=== PATIENT | male | born 1965 | race Caucasian/White ===

== ENCOUNTER 2018-02-17 12:21 | Inpatient (IN) | payer OTHER, MEDICARE ==
[~2018-02-17] VITALS: Ht 185.4 cm; Wt 103.3 kg
[~2018-02-17 12:21] MED LIST: DEXAMETHASONE SOD PHOS 4 MG/ML VIAL IV ONE; GLYCOPYRROLATE 1 MG/5 ML SYRINGE IV PUSH ONE; LACTATED RINGER'S 1000 ML INJ 1,000 ML IV ONE; LIDOCAINE HCL 1% PF 5 ML SYRINGE OTHER ONE; NEOSTIGMINE 5 MG/5 ML SYRINGE IV PUSH ONE; ONDANSETRON HCL 4 MG/2 ML VIAL IV ONE; PHENYLEPH/NS 1000 MCG/10 ML SYR IV ONE; PROPOFOL 200 MG/20 ML AMP IV ONE; ROCURONIUM INJ 50 MG/5 ML SYRINGE IV PUSH ONE; SODIUM CHLORIDE 0.9% 10 ML VIAL IV ONE; STERILE WATER FOR INJECTION 20 ML VIAL IV ONE; VECURONIUM BROMIDE 20 MG VIAL IV ONE; ceFAZolin INJ 1,000 MG VIAL IV ONE
[2018-02-17] MEDS ORDERED: GENTAMICIN SULFATE 80 MG/2 ML VIAL ONE (12:49)
[2018-02-17] MEDS ORDERED: UMEC1AER INH (13:22)
[2018-02-17] MEDS ORDERED: OMEP20TA93 PO (13:22)
[2018-02-17] MEDS ORDERED: TAMS0.4C4 PO (13:22)
[2018-02-17] MEDS ORDERED: LACT10SO PO (13:22)
[2018-02-17] MEDS ORDERED: DICL50TA3 PO (13:22)
[2018-02-17] MEDS ORDERED: VENTAER INH (13:22)
[2018-02-17] MEDS ORDERED: HYDR-3583 PO (13:22)
[2018-02-17] MEDS ORDERED: METO25TA3 PO (13:22)
[2018-02-17] MEDS ORDERED: LACTATED RINGER'S 1000 ML IV PRN (13:45)
[2018-02-17] MEDS ORDERED: ceFAZolin 2 GM PREMIX 50 ML IV SCH (13:45)
[2018-02-17] MEDS ORDERED: VANCOMYCIN 1 GM/200 ML PREMIX ON-CALL IV SCH (13:45)
[2018-02-17] MEDS ORDERED: VANCOMYCIN 1000 MG/NS 250 ML (for <70 kg) IV SCH ×2 (13:45)
[2018-02-17] MEDS ORDERED: CHLORHEXIDINE GLUCONATE 2 % 1 PACK (2 CLOTHS) TOPICAL PRN (13:45)
[2018-02-17] MEDS ORDERED: SODIUM CHLORID 0.9% 500 ML IV PRN (13:45)
[2018-02-17] MEDS ORDERED: METOPROLOL TARTRATE 25 MG TAB PO PRN (13:45)
[2018-02-17] MEDS ORDERED: CHLORHEXIDINE GLUCONATE 4% SOLN 120 ML BTL TOPICAL SCH (13:45)
[2018-02-17] MEDS ORDERED: POVIDONE IODINE 5% (ANTISEPSIS KIT) 4 APPLICATIONS EACH NARE PRN (13:45)
[2018-02-17] MEDS ORDERED: ACETAMINOPHEN 1000 MG/100 ML 100 ML IV ONE (13:57)
[2018-02-17] MEDS ORDERED: KETAMINE HCL 500 MG/10 ML VIAL ONE (15:33)
[2018-02-17] MEDS ORDERED: BEDSIDE COMMODE1 MI1 (17:13)
[2018-02-17] MEDS ORDERED: WALKER WHEELS/F1 MIS (17:13)
--- NOTE | 2018-02-17 17:14 | HHI.FF ---
Face to Face Verification Diagnosis: (1) Osteoarthritis of left hip Physical Therapy Gait training, Transfer training, bed to chair Hip: Total hip, Protocol: Left Canvas Knee Splint: Other (when sleeping at night for 4 weeks ) Right LE Weight Bearing: WB as tolerated Left LE Weight Bearing: WB as tolerated Nursing RN: 3 days/week x 2 weeks Nursing: Dressing changes (clean incision with alcohol and apply dry sterile dressing daily ) Additional Instructions Aspirin 81 mg bid x 4 weeks DVT prop I have seen patient Kel Magaña on 02/17/18. My clinical findings support the need for the requested home health care services because: High risk of falls I certify that my clinical findings support that this patient is homebound because: Post-op weakness Bayron Lynch MD Feb 17, 2018 17:14
[2018-02-17] MEDS ORDERED: ALUMINUM/MAGNESIUM/SIMETH 30 ML CUP PO PRN (17:15)
[2018-02-17] MEDS ORDERED: oxyCODONE/ACETAMINOPHEN 10 MG/325 MG TAB PO PRN (17:15)
[2018-02-17] MEDS ORDERED: MIDAZOLAM HCL 2 MG/2 ML VIAL ONE (17:15)
[2018-02-17] MEDS ORDERED: Post-op Orders (for Pharmacy) XX ONE (17:15)
[2018-02-17] MEDS ORDERED: ALBUTEROL SULFATE 90 MCG/ACT HFA 8 GM INHALER INH PRN (17:15)
[2018-02-17] MEDS ORDERED: ONDANSETRON HCL 4 MG/2 ML VIAL IVP PRN (17:15)
[2018-02-17] MEDS ORDERED: MORPHINE SULFATE 4 MG/ML INJ ONE (17:15)
[2018-02-17] MEDS ORDERED: *MEPERIDINE 25 MG INJ VIAL PERIprocedural Use ONLY ONE (17:17)
[2018-02-17] MEDS ORDERED: *ONDANSETRON 4 MG VIAL PERIprocedural Use ONLY ONE (17:30)
[2018-02-17] MEDS ORDERED: *morphine SULFATE 4 MG/ML PERIprocedure ONLY ONE ×3 (17:30→18:26)
[2018-02-17] MEDS ORDERED: HYDROmorphone HCL PF 0.5 MG/0.5 ML SYRINGE ONE (17:48)
--- NOTE | 2018-02-17 17:51 | MP ---
cc: Bayron Lynch MD, Maria Hernandez, Manuel DATE OF OPERATION: PREOPERATIVE DIAGNOSIS: Left hip severe osteoarthritis. POSTOPERATIVE DIAGNOSIS: Left hip severe osteoarthritis. PROCEDURE PERFORMED: Left total hip arthroplasty. SURGEON: Bayron Lynch MD MARINE SPECIALIST: Gardenia Miranda PA-C ANESTHESIA: General. COMPLICATIONS: None. ESTIMATED BLOOD LOSS: 350 mL DRAINS: None. SPECIMEN: None. DESCRIPTION OF PROCEDURE: My psychologist research assistant, Gardenia Miranda PA-C, was present for the entire surgical case. She was medically necessary for the entire case because of the complexity of the case and to facilitate the performance of the procedure. The RETAIL FIELD MERCHANDISER was at the back table and was not of skill-set for this case to manipulate the instruments, e.g., the multiple different types of soft tissue retractors, trial implants and permanent implants. The patient was brought to the operating room and had satisfactory anesthesia by the Department of Anesthesia. The patient was placed in lateral decubitus position. All pressure points were well padded. The left upper and lower extremity were prepped and draped in the usual sterile manner. The left hip and lower extremity was prepped and draped in the usual sterile manner. The posterolateral exposure to the hip was made. The patient was found to have a significant limb length discrepancy with left leg shorter than the right leg with significant stiffness in hip preoperatively. A small posterolateral incision was made, dissecting through subcutaneous tissue. The fascia luz elena and gluteus etelvina were incised in line with the skin incision. Charnley retractor was placed in the wound in order to allow better exposure. Great care was made to protect the sciatic nerve throughout the entire operative procedure. The fascia luz elena and gluteus etelvina were incised in line with the skin incision. Short external rotators removed as a group. The hip abductors were preserved. Capsulotomy was performed and the hip was dislocated posteriorly. The patient was found to have significant deformity to the head with severe arthritis involving the hip joint itself. Osteotomy was made on the neck at the appropriate level. Exposure of the acetabulum made. The acetabular capsule and the acetabular labrum were surgically excised. Significant soft tissue releases were performed in order to improve the patient's range of motion. Hemispherical reamers were then used to prepare the acetabulum. The hip itself was initially medialized. It was sequentially reamed to 52 mm outer diameter. Using a bicentric cup, press-fit type manner, it was found to be stable and satisfactory. The preparation of the proximal femur was performed. Using the [employer] system, sequentially broached to a #11 broach and standard offset. Reduction was made with multiple limb lengths with 28 mm ball. A +6 neck was assembled onto the trunnion. The hip was reduced. The patient was found to have satisfactory stability, satisfactory improvement of the limb length discrepancy and satisfactory range of motion. Hip was dislocated again posteriorly and all trial components were removed. A #11 stem, standard offset was then inserted into the proximal femur with an "excellent fit and fill." A +6 neck, 28 mm ball ceramic femoral head was assembled onto the trunnion. Hip was reduced. Again, patient was found to have satisfactory range of motion, satisfactory stability and satisfactory improvement of the limb length discrepancy. The wound was irrigated with copious amounts of sterile saline antibiotic solution, wound dry, wound closed in a routine manner. The short external rotators were repaired back to the greater trochanter drill holes using #2 Ti-Cron suture. The fascia luz elena and gluteus etelvina were repaired using #2 Ti-Cron suture, subcutaneous layers with 0 Vicryl and 2-0 Vicryl. Skin was approximated with running subcuticular 2-0 nylons. The patient tolerated the procedure well and went to the recovery room in stable and satisfactory condition. MD POPEYE Long/ANNA , 05:06 PM , 05:50 PM
--- NOTE | 2018-02-17 18:12 | RADRPT ---
EXAM DATE/TIME: 02/17/2018 18:20 [facility] COMPARISON: No previous studies available for comparison. INDICATIONS : Post op left hip. MEDICAL HISTORY : None. SURGICAL HISTORY : None. ENCOUNTER: Initial ACUITY: 1 day PAIN SCORE: Non-responsive. LOCATION: Left hip. FINDINGS: A lateral view of the left hip with AP pelvis was obtained. Left total hip arthroplasty. Both the fem oral and acetabular components are appropriately positioned. No fracture. Mild degenerative osteoarth ritic changes of the right hip with a subchondral acetabular cyst superiorly. CONCLUSION: 1. Left total hip arthroplasty is radiographically intact without fracture. 2. Degenerative osteoarthritic changes of the right hip Bharath Romano MD on February 17, 2018 at 18:09 Board Certified Radiologist. This report was verified electronically.
[2018-02-17] MEDS: oxyCODONE/ACETAMINOPHEN 10 MG/325 MG TAB PO PRN (18:15)
[2018-02-17] MEDS: LACTATED RINGER'S 1000 ML INJ 1,000 ML IV SCH (18:15)
[2018-02-17] MEDS ORDERED: DO NOT ADM ANY ANTICOAGULANT DRUGS PRN (19:45)
[2018-02-17 20:46] VITALS: BP 135/76; PULSE 83; RESP 18; TEMP 97.4; O2SAT 96
[2018-02-17] MEDS ORDERED: RESP: ALBUTEROL 2.5 MG/IPRATROPIUM 0.5 MG NEB (PRN) NEB (21:00)
--- NOTE | 2018-02-17 21:02 | PD.CONS ---
[facility] Request[facility] By Bayron Lynch MD . Reason for Consult Medical management of chronic medical conditions such as atrial fibrillation, hypertension, and COPD . Primary Care Physician Bayron Lynch MD Diagnoses: (1) Osteoarthritis of left hip History of Present Illness Mr. Magaña is a 52-year-old male with a history of atrial fibrillation on daily aspirin, COPD, bleeding peptic ulcer in 1998, and gastroesophageal reflux disease who presented to the hospital on 02/17/2018 for a left total hip arthroplasty. He is being admitted by Dr. Lynch with radiation oncology consultation for post-op radiation treatments to left hip to prevent postoperative heterotopic ossification. [facility] hospitalists were consulted to manage comorbid chronic medical conditions. The patient is seen in his hospital room. He is postoperative left total hip arthroplasty. Pain level has been as high as a 10/10. He reports adequate pain relief with current pain regimen. He has been in his usual state of health pre-operatively. He has chronic back pain and uses something similar to a TENS unit for this. Review of Systems Except as stated in HPI: all other systems reviewed are Neg Past Family Social History Allergies: Coded Allergies: No Known Allergies (Unverified , 02/17/18) Past Medical History Atrial fibrillation Osteoarthritis COPD Bleeding ulcer in 1998 -secondary to oral steroid use Gastroesophageal reflux disease Denies hypertension, diabetes mellitus, DVT, PE, or CVA. . Past Surgical History Right knee arthroplasty Right rotator cuff repair L4 - S2 laminectomy in 1999 Tonsillectomy Reported Medications Reported Meds & Active Scripts Active Reported Ventolin Hfa 18 GM Inh (Albuterol Sulfate) 90 Mcg/Act Aer 1 Puff INH Q4H PRN Tamsulosin (Tamsulosin HCl) 0.4 Mg Cap 0.8 Mg PO HS Omeprazole 20 Mg Tab 20 Mg PO DAILY Metoprolol Tartrate 25 Mg Tab 25 Mg PO DAILY Lactulose Liq (Lactulose) 10 Gm/15 Ml Soln 30 Ml PO Q6H PRN Diclofenac Sodium DR (Diclofenac Sodium) 50 Mg Tabdr 50 Mg PO TID Anoro Ellipta Inh (Umeclidinium/Vilanterol) 62.5-25 Mcg/Act Aero 1 Puff INH DAILY Hydrocodone-Acetaminophen 10-325 mg Tab 1 Tab PO Q4H PRN . Family History Mother from Melanoma, history of osteoarthritis Father with history of heart disease . Social History Tobacco: Smoked 1 pack per day for 42 years and quit November 04, 2017 Alcohol: Rare social Illicit Drugs: Denies . Physical Exam Vital Signs Vital Signs Date Time Temp Pulse Resp B/P (MAP) Pulse Ox O2 Delivery O2 Flow Rate FiO2 02/17/18 19:45 98.0 80 14 114/68 (83) 95 Nasal Cannula 2 02/17/18 19:00 81 12 112/58 (76) 94 Nasal Cannula 2 02/17/18 18:00 72 13 104/56 (72) 97 Nasal Cannula 2 02/17/18 17:45 60 14 125/59 (81) 97 Nasal Cannula 2 02/17/18 17:30 62 15 148/65 (92) 97 Nasal Cannula 2 02/17/18 17:15 70 18 118/68 (85) 95 Nasal Cannula 2 02/17/18 17:08 97.7 71 20 117/63 (81) 96 Nasal Cannula 4 02/17/18 13:40 98.4 69 16 117/72 (87) 69 Physical Exam Constitutional: This is an overweight middle-aged pleasant male patient, in no apparent distress. Integumentary: No rashes. Cool and dry. HEAD: Atraumatic. Normocephalic. EYES: No scleral icterus. No injection or drainage. ENT: Nose without bleeding, purulent drainage. NECK: Trachea midline. No JVD. CARDIOVASCULAR: Regular rate and rhythm without murmurs, gallops, or rubs. PP + 2. RESPIRATORY: Clear to auscultation. Breath sounds equal bilaterally. No wheezes , rales, or rhonchi. GASTROINTESTINAL: Abdomen soft, non-tender, nondistended. No guarding. MUSCULOSKELETAL: Extremities without clubbing, cyanosis. Left leg immobilizer in place, patient with intact sensation, movement, and rapid capillary refill in feet. NEUROLOGICAL: Awake and alert. Motor and sensory grossly within normal limits. Normal speech. . Imaging Last Impressions Hip and Pelvis X-Ray 02/17/18 0000 Signed Impressions: Service Date/Time: Saturday, February 17, 2018 18:20 - CONCLUSION: 1. Left total hip arthroplasty is radiographically intact without fracture. 2. Degenerative osteoarthritic changes of the right hip Bharath Romano MD . Assessment and Plan Assessment and Plan Mr. Magaña is a 52-year-old male with a history of atrial fibrillation on daily aspirin, COPD, bleeding peptic ulcer in 1998, and gastroesophageal reflux disease who presented to the hospital on 02/17/2018 for a left total hip arthroplasty. He is being admitted by Dr. Lynch with radiation oncology consultation for post-op radiation treatments to left hip to prevent postoperative heterotopic ossification. [facility] hospitalists were consulted to manage comorbid chronic medical conditions. Left hip osteoarthritis s/p Left hip arthroplasty - management per Dr. Lynch orthopedic surgeon - Dr. Lynch has consulted radiation oncology for post op radiation treatments to left hip to prevent heterotopic ossification Atrial fibrillation -Continue home metoprolol -Continuous cardiac telemetry to monitor for further arrhythmia COPD -Continue home albuterol inhaler as needed -Patient will have bring in name of preventive home inhaler that is not available on the medication reconciliation - will restart at that time -Add duo nebulizer every 2 hours for shortness of breath/wheezing not controlled by albuterol inhaler -Supplemental oxygen as needed to maintain oxygen saturation greater than 92% GERD -Protonix 20 mg p.o. daily -monitor for symptoms DVT prophylaxis -chemoprophylaxis per orthopedic surgeon -SCDs Discussed Condition With Dr. Johnson . Problem Qualifiers (1) Osteoarthritis of left hip: Qualified Codes: M16.12 - Unilateral primary osteoarthritis, left hip Sarah Mauro Feb 17, 2018 21:02
[2018-02-17] MEDS: ASPIRIN EC 81 MG TABEC PO SCH (21:14)
[2018-02-17] MEDS: TAMSULOSIN HCL 0.4 MG CAP PO SCH (21:14)
[2018-02-17] MEDS: MORPHINE SULFATE 8 MG/ML INJ IV PUSH PRN (22:09)
[2018-02-18] VITALS (8 sets, daily range): BP systolic 116–139; BP diastolic 62–76; PULSE 79–105; RESP 16–18; TEMP 98.2–98.9; O2SAT 91–98
[2018-02-18] MEDS: oxyCODONE/ACETAMINOPHEN 10 MG/325 MG TAB PO PRN ×4 (00:38→18:52)
[2018-02-18] MEDS: MORPHINE SULFATE 8 MG/ML INJ IV PUSH PRN (01:49)
[2018-02-18] MEDS: LACTATED RINGER'S 1000 ML INJ 1,000 ML IV SCH ×2 (02:56→18:03)
[2018-02-18 05:09] LABS: HEMATOCRIT 34.5 % (39.0-51.0); HEMOGLOBIN 11.8 GM/DL (13.0-17.0)
--- NOTE | 2018-02-18 07:05 | PD.ORT.PN ---
Subjective Subjective Remarks POD#1 L THR No sob/chest pain Explained operative findings;answered multiple questions Objective Vitals Vital Signs Date Time Temp Pulse Resp B/P (MAP) Pulse Ox O2 Delivery O2 Flow Rate FiO2 02/18/18 00:08 98.7 105 18 118/76 (90) 98 02/17/18 20:46 97.4 83 18 135/76 (95) 96 02/17/18 19:45 98.0 80 14 114/68 (83) 95 Nasal Cannula 2 02/17/18 19:00 81 12 112/58 (76) 94 Nasal Cannula 2 02/17/18 18:00 72 13 104/56 (72) 97 Nasal Cannula 2 02/17/18 17:45 60 14 125/59 (81) 97 Nasal Cannula 2 02/17/18 17:30 62 15 148/65 (92) 97 Nasal Cannula 2 02/17/18 17:15 70 18 118/68 (85) 95 Nasal Cannula 2 02/17/18 17:08 97.7 71 20 117/63 (81) 96 Nasal Cannula 4 02/17/18 13:40 98.4 69 16 117/72 (87) 69 I/O 02/17/18 02/17/18 02/17/18 02/18/18 02/18/18 02/18/18 07:00 15:00 23:00 07:00 15:00 23:00 Intake Total 2051 ml Output Total 350 ml Balance 1701 ml Intake Oral 200 ml IV Total 151 ml Other 1700 ml Output Estimated Blood Loss 350 ml # Voids 1 Result Diagram: 02/18/18 0442 Objective Remarks N/V intact No calf tenderness;negative louisa's sign Good correction of pre-op LLD Assessment & Plan Assessment and Plan Low dose XRT today to help prevent post op HO Aspirin EC 81 mg BID x 4 weeks,TEDS for DVT/PE prophylaxsis D/C home today if stable Bayron Lynch MD Feb 18, 2018 07:05
--- NOTE | 2018-02-18 08:15 | MB ---
cc: Antonino Abreu MD, Albert W MD DATE: 02/18/2018 REASON FOR CONSULTATION: A 52-year-old gentleman status post left total hip replacement yesterday for consideration of radiation for prevention of heterotopic ossification. BRIEF HISTORY: This is a 52-year-old gentleman who has a history of a right knee arthroplasty, right rotator cuff repair and an L4-S2 laminectomy. Because of osteoarthritis he was brought to the hospital and yesterday a left total hip replacement was performed under Dr. Lynch's care. Afterwards he asked us to see this patient for consideration of radiation treatment for prevention of heterotopic ossification. This gentleman was seen in the recovery room. He was having considerable postoperative pain and a discussion regarding the reason and rationale for treatment ensued. PAST MEDICAL AND SURGICAL HISTORY: Includes: 1. Osteoarthritis. 2. Atrial fibrillation. 3. Chronic obstructive pulmonary disease. 4. History of bleeding ulcer in 1998. 5. Gastroesophageal reflux disease. 6. He has had a right knee arthroplasty. 7. Right rotator cuff repair. 8. L4-S2 laminectomy. 9. Previous tonsillectomy. ALLERGIES: NO ALLERGIES DOCUMENTED IN THE CHART. MEDICATIONS ON ADMISSION: Have included Ventolin, tamsulosin, omeprazole, metoprolol, lactulose, diclofenac, Anoro Ellipta, and hydrocodone for pain. SOCIAL HISTORY: This gentleman is . He did smoke until 11/2017. REVIEW OF SYSTEMS: Postoperatively, this gentleman's systems review included postoperative pain. He denied symptoms referable to other systems. PHYSICAL EXAMINATION: Brief physical exam revealed a gentleman who was still drowsy and being treated with narcotics for pain. There was no jaundice. He answered appropriately. There is no adenopathy in his head. LUNGS: Lung bal were clear. HEART: Sounds were normal. ABDOMEN: There are no abdominal masses or tenderness. EXTREMITIES: He had a surgical site over the left hip. DISCUSSION: I have reviewed with this gentleman the reason and rationale for postoperative radiation treatment. I have told him that we will be bringing him down to radiation treatment on 02/18/2018. I will again review this data with him as he was immediately postop and I would like him to be more alert for an appropriate consent. Nevertheless, if he does agree we will proceed with a single dose of radiation treatment to the left hip complex per protocol. This has been shown to significantly reduce the risk of heterotopic bone formation in the future. The patient did appear to understand and was agreeable to proceeding and as mentioned, we will review this with him again on 02/18/2018. We hope to deliver treatment that day. MD LEE ANN Jimenez/TL , 07:51 AM , 08:14 AM
[2018-02-18] MEDS: PANTOPRAZOLE SOD 20 MG DELAYED RELEASE TAB PO SCH (08:54)
[2018-02-18] MEDS: ASPIRIN EC 81 MG TABEC PO SCH ×2 (08:55→20:42)
[2018-02-18] MEDS: METOPROLOL TARTRATE 25 MG TAB PO SCH (08:55)
[2018-02-18] MEDS: UMECLIDINIUM 62.5 MCG/VILANTEROL 25 MCG INHALER INH SCH (09:00)
--- NOTE | 2018-02-18 11:12 | HHI.PR ---
Subjective Remarks Mr. Magaña is a 52-year-old male with a history of atrial fibrillation on daily aspirin, COPD, bleeding peptic ulcer in 1998, and gastroesophageal reflux disease who presented to the hospital on 02/17/2018 for a left total hip arthroplasty. He is being admitted by Dr. Lynch with radiation oncology consultation for post-op radiation treatments to left hip to prevent postoperative heterotopic ossification. [facility] hospitalists were consulted to manage comorbid chronic medical conditions. The patient is seen in his hospital room. He is postoperative left total hip arthroplasty. Pain level has been as high as a 10/10. He reports adequate pain relief with current pain regimen. He has been in his usual state of health pre-operatively. He has chronic back pain and uses something similar to a TENS unit for this. 02-18 to go for radiation on his left hip today due to avascular necrosis Working with physical therapy Denies any nausea vomiting or diarrhea or constipation denies any shortness of breath or chest pain or palpitations Hopefully to go home tomorrow Objective Vitals Vital Signs Date Time Temp Pulse Resp B/P (MAP) Pulse Ox O2 Delivery O2 Flow Rate FiO2 02/18/18 08:00 98.2 82 16 118/62 (80) 91 02/18/18 05:08 98.9 81 18 116/63 (80) 92 02/18/18 00:08 98.7 105 18 118/76 (90) 98 02/17/18 20:46 97.4 83 18 135/76 (95) 96 02/17/18 19:45 98.0 80 14 114/68 (83) 95 Nasal Cannula 2 02/17/18 19:00 81 12 112/58 (76) 94 Nasal Cannula 2 02/17/18 18:00 72 13 104/56 (72) 97 Nasal Cannula 2 02/17/18 17:45 60 14 125/59 (81) 97 Nasal Cannula 2 02/17/18 17:30 62 15 148/65 (92) 97 Nasal Cannula 2 02/17/18 17:15 70 18 118/68 (85) 95 Nasal Cannula 2 02/17/18 17:08 97.7 71 20 117/63 (81) 96 Nasal Cannula 4 02/17/18 13:40 98.4 69 16 117/72 (87) 69 I/O 4/16/18 402/17/18 02/18/18 02/18/18 02/18/18 07:00 15:00 23:00 07:00 15:00 23:00 Intake Total 2051 ml 780 ml Output Total 350 ml 2000 ml Balance 1701 ml -1220 ml Intake Oral 200 ml 780 ml IV Total 151 ml Other 1700 ml Output Urine Total 2000 ml Estimated Blood Loss 350 ml # Voids 1 Result Diagram: 02/18/18 0442 Other Results Laboratory Tests Test 02/18/18 04:42 Hemoglobin 11.8 GM/DL Hematocrit 34.5 % Imaging Last Impressions Hip and Pelvis X-Ray 02/17/18 0000 Signed Impressions: Service Date/Time: Saturday, February 17, 2018 18:20 - CONCLUSION: 1. Left total hip arthroplasty is radiographically intact without fracture. 2. Degenerative osteoarthritic changes of the right hip Bharath Romano MD Objective Remarks GENERAL: Awake alert and oriented 3 talkative and cooperative SKIN: Warm and dry. HEAD: Atraumatic. Normocephalic. EYES: Pupils equal and round. No scleral icterus. No injection or drainage. Extraocular muscles intact ENT: No nasal bleeding or discharge. Mucous membranes pink and moist. Tongue is midline NECK: Trachea midline. No JVD. Supple CARDIOVASCULAR: IRRegular rate and rhythm. S1-S2 no S3 or S4 no heave or thrill or rub or gallop RESPIRATORY: No accessory muscle use. Clear to auscultation. Breath sounds equal bilaterally. GASTROINTESTINAL: Abdomen soft, non-tender, nondistended. Hepatic and splenic margins not palpable. MUSCULOSKELETAL: Extremities without clubbing, cyanosis, or edema. No obvious deformities. Tender left hip with decreased range of motion NEUROLOGICAL: Awake and alert. No obvious cranial nerve deficits. Motor grossly within normal limits. Five out of 5 muscle strength in the arms and legs. Normal speech. Tender left hip with decreased range of motion PSYCHIATRIC: Appropriate mood and affect; insight and judgment normal. Procedures DATE OF OPERATION: 02-17-18 PREOPERATIVE DIAGNOSIS: Left hip severe osteoarthritis. POSTOPERATIVE DIAGNOSIS: Left hip severe osteoarthritis. PROCEDURE PERFORMED: Left total hip arthroplasty. SURGEON: Bayron Lynch MD LUMP MAKER: Gardenia Miranda PA-C ANESTHESIA: General. COMPLICATIONS: None. ESTIMATED BLOOD LOSS: 350 mL DRAINS: None. SPECIMEN: None. DESCRIPTION OF PROCEDURE: My personnel security assistant, Gardenia Miranda PA-C, was present for the entire surgical case. She was medically necessary for the entire case because of the complexity of the case and to facilitate the performance of the procedure. The RN HYPERBARIC was at the back table and was not of skill-set for this case to manipulate the instruments, e.g., the multiple different types of soft tissue retractors, trial implants and permanent implants. The patient was brought to the operating room and had satisfactory anesthesia by the Department of Anesthesia. The patient was placed in lateral decubitus position. All pressure points were well padded. The left upper and lower extremity were prepped and draped in the usual sterile manner. The left hip and lower extremity was prepped and draped in the usual sterile manner. The posterolateral exposure to the hip was made. The patient was found to have a significant limb length discrepancy with left leg shorter than the right leg with significant stiffness in hip preoperatively. A small posterolateral incision was made, dissecting through subcutaneous tissue. The fascia luz elena and gluteus etelvina were incised in line with the skin incision. Charnley retractor was placed in the wound in order to allow better exposure. Great care was made to protect the sciatic nerve throughout the entire operative procedure. The fascia luz elena and gluteus etelvina were incised in line with the skin incision. Short external rotators removed as a group. The hip abductors were preserved. Capsulotomy was performed and the hip was dislocated posteriorly. The patient was found to have significant deformity to the head with severe arthritis involving the hip joint itself. Osteotomy was made on the neck at the appropriate level. Exposure of the acetabulum made. The acetabular capsule and the acetabular labrum were surgically excised. Significant soft tissue releases were performed in order to improve the patient's range of motion. Hemispherical reamers were then used to prepare the acetabulum. The hip itself was initially medialized. It was sequentially reamed to 52 mm outer diameter. Using a bicentric cup, press-fit type manner, it was found to be stable and satisfactory. The preparation of the proximal femur was performed. Using the [employer] system, sequentially broached to a #11 broach and standard offset. Reduction was made with multiple limb lengths with 28 mm ball. A +6 neck was assembled onto the trunnion. The hip was reduced. The patient was found to have satisfactory stability, satisfactory improvement of the limb length discrepancy and satisfactory range of motion. Hip was dislocated again posteriorly and all trial components were removed. A #11 stem, standard offset was then inserted into the proximal femur with an "excellent fit and fill." A +6 neck, 28 mm ball ceramic femoral head was assembled onto the trunnion. Hip was reduced. Again, patient was found to have satisfactory range of motion, satisfactory stability and satisfactory improvement of the limb length discrepancy. The wound was irrigated with copious amounts of sterile saline antibiotic solution, wound dry, wound closed in a routine manner. The short external rotators were repaired back to the greater trochanter drill holes using #2 Ti-Cron suture. The fascia luz elena and gluteus etelvina were repaired using #2 Ti-Cron suture, subcutaneous layers with 0 Vicryl and 2-0 Vicryl. Skin was approximated with running subcuticular 2-0 nylons. The patient tolerated the procedure well and went to the recovery room in stable and satisfactory condition. Bayorn Lynch MD Medications and IVs Current Medications Gentamicin Sulfate (Gentamicin Inj) 240 mg STK-MED ONCE .ROUTE Last administered on 02/17/18at 15:44; Start 02/17/18 at 12:49; Stop 02/17/18 at 12:50 ; Status DC Lactated Ringer's 1,000 ml @ 30 mls/hr Q24H PRN IV SEE LABEL COMMENTS Last administered on 02/17/18at 13:48; Start 02/17/18 at 13:45; Stop 02/17/18 at 18:02 ; Status DC Sodium Chloride 500 ml @ 30 mls/hr [id number] PRN IV SEE LABEL COMMENTS; Start at 13:45; Stop 02/17/18 at 18:02; Status DC Metoprolol Tartrate (Lopressor) 25 mg ELECTRIC STOP INSTALLER PRN PO SEE LABEL COMMENTS; Start 02/17/18 at 13:45; Stop 02/17/18 at 18:02; Status DC Povidone Iodine (Betadine 5% Antisepsis Kit) 1 applic ELECTRIC STOP INSTALLER PRN EACH NARE SEE LABEL COMMENTS Last administered on 02/17/18at 13:48; Start 02/17/18 at 13:45 ; Stop 02/17/18 at 18:02; Status DC Chlorhexidine Gluconate (Chlorhexidine 2% Cloth) 3 pack ELECTRIC STOP INSTALLER PRN TOPICAL SEE LABEL COMMENTS Last administered on 02/17/18at 13:48; Start 02/17/18 at 13:45 ; Stop 02/20/18 at 13:44 Chlorhexidine Gluconate (Hibiclens 4% Top Soln) 1 applic ONCE TOPICAL Last administered on 02/17/18at 13:48; Start 02/17/18 at 13:45; Stop 02/17/18 at 18:02 ; Status DC Cefazolin Sodium/ Dextrose 50 ml @ 100 mls/hr ELECTRIC STOP INSTALLER IV Last administered on 02/17/18at 15:05; Start 02/17/18 at 13:45; Stop 02/17/18 at 18:02; Status DC Vancomycin HCl 1000 mg/Sodium Chloride 250 ml @ 250 mls/hr ELECTRIC STOP INSTALLER IV ; Start 02/17/18 at 13:45; Stop 02/20/18 at 13:44; Status Cancel Vancomycin/Sodium Chloride 200 ml @ 200 mls/hr ELECTRIC STOP INSTALLER IV Last administered on 02/17/18at 14:47; Start 02/17/18 at 13:45; Stop 02/20/18 at 13:44 Acetaminophen 100 ml @ As Directed STK-MED ONCE IV ; Start 02/17/18 at 13:57; Stop 02/17/18 at 13:58; Status DC Ketamine HCl (Ketalar Inj) 500 mg STK-MED ONCE .ROUTE ; Start 02/17/18 at 15:33 ; Stop 02/17/18 at 15:34; Status DC Albuterol Sulfate (Proair Hfa Inh) 1 puff Q4H PRN INH SHORTNESS OF BREATH; Start 02/17/18 at 17:15 Lactulose (Lactulose Liq) 30 ml Q6H PRN PO CONSTIPATION; Start 02/17/18 at 17: 15 Metoprolol Tartrate (Lopressor) 25 mg DAILY PO Last administered on 02/18/18at 08:55; Start 02/18/18 at 09:00 Tamsulosin HCl (Flomax) 0.8 mg HS PO Last administered on 02/17/18at 21:14; Start 02/17/18 at 21:00 Pantoprazole Sodium (Protonix) 20 mg DAILY PO Last administered on 02/18/18at 08 :54; Start 02/18/18 at 09:00 Lactated Ringer's 1,000 ml @ 80 mls/hr [id number] IV Last administered on at 18:15; Start 02/17/18 at 17:03 Cefazolin Sodium 1000 mg/Sodium Chloride 100 ml @ 200 mls/hr Q6H IV Last administered on 02/18/18at 08:56; Start 02/17/18 at 21:00; Stop 02/18/18 at 09:29 ; Status DC Miscellaneous Information (Post-op Orders (for Pharmacy)) STAT ONCE XX ; Start 02/17/18 at 17:15; Stop 02/17/18 at 18:05; Status DC Morphine Sulfate (Morphine Inj) 5 mg Q3H PRN IV PUSH BREAKTHROUGH PAIN Last administered on 02/18/18at 01:49; Start 02/17/18 at 17:15; Stop 02/18/18 at 08:00 ; Status DC Ondansetron HCl (Zofran Inj) 4 mg Q6H PRN IVP NAUSEA OR VOMITING; Start at 17:15 Docusate Sodium (Colace) 100 mg BID PO ; Start 02/18/18 at 21:00 Al Hydrox/Mg Hydrox/Simethicone (Mag-Al Plus Susp Liq) 30 ml Q6H PRN PO INDIGESTION; Start 02/17/18 at 17:15 Zolpidem Tartrate (Ambien) 5 mg HS PRN PO SLEEP; Start 02/17/18 at 17:15 Aspirin (Ecotrin Ec) 81 mg BID PO Last administered on 02/18/18at 08:55; Start 02/17/18 at 21:00 Oxycodone/ Acetaminophen (Percocet 10-325 Mg) 1 tab Q6H PRN PO PAIN 1-5; Start 02/17/18 at 17:15 Oxycodone/ Acetaminophen (Percocet 10-325 Mg) 2 tab Q6H PRN PO PAIN 6-10 Last administered on 02/18/18at 07:10; Start 02/17/18 at 17:15 Fentanyl Citrate (fentaNYL INJ) 100 mcg STK-MED ONCE .ROUTE ; Start 02/17/18 at 17:15; Stop 02/17/18 at 17:16; Status DC Midazolam HCl (Versed Inj) 2 mg STK-MED ONCE .ROUTE ; Start 02/17/18 at 17:15; Stop 02/17/18 at 17:16; Status DC Morphine Sulfate (Morphine Inj) 8 mg STK-MED ONCE .ROUTE ; Start 02/17/18 at 17: 15; Stop 02/17/18 at 17:16; Status DC Meperidine HCl (*DEMEROL INJ PERIprocedural ONLY) 25 mg STK-MED ONCE .ROUTE Last administered on 02/17/18at 17:17; Start 02/17/18 at 17:17; Stop 02/17/18 at 17:18; Status DC Morphine Sulfate (*morphine INJ PERIprocedure ONLY) 4 mg STK-MED ONCE .ROUTE Last administered on 02/17/18at 17:30; Start 02/17/18 at 17:30; Stop 02/17/18 at 17:31; Status DC Ondansetron HCl (*ZOFRAN INJ PERIprocedural ONLY) 4 mg STK-MED ONCE .ROUTE Last administered on 02/17/18at 17:30; Start 02/17/18 at 17:30; Stop 02/17/18 at 17:31; Status DC Morphine Sulfate (*morphine INJ PERIprocedure ONLY) 4 mg STK-MED ONCE .ROUTE Last administered on 02/17/18at 17:40; Start 02/17/18 at 17:40; Stop 02/17/18 at 17:41; Status DC Hydromorphone HCl (Dilaudid Pf Inj) 0.5 mg STK-MED ONCE .ROUTE Last administered on 02/17/18at 17:48; Start 02/17/18 at 17:48; Stop 02/17/18 at 17:49 ; Status DC Morphine Sulfate (*morphine INJ PERIprocedure ONLY) 4 mg STK-MED ONCE .ROUTE Last administered on 02/17/18at 18:26; Start 02/17/18 at 18:26; Stop 02/17/18 at 18:27; Status DC Miscellaneous Information ALL NURSING DEPARTME... UNSCH PRN .XX SEE LABEL COMMENTS; Start 02/17/18 at 19:45; Stop 02/18/18 at 19:44 Albuterol/ Ipratropium (Duoneb Neb) 1 ampule Q2HR NEB PRN NEB sob/wheezing ; Start 02/17/18 at 21:00 A/P Problem List: (1) Osteoarthritis of left hip ICD Code: M16.12 - Unilateral primary osteoarthritis, left hip Assessment and Plan Mr. Magaña is a 52-year-old male with a history of atrial fibrillation on daily aspirin, COPD, bleeding peptic ulcer in 1998, and gastroesophageal reflux disease who presented to the hospital on 02/17/2018 for a left total hip arthroplasty. He is being admitted by Dr. Lynch with radiation oncology consultation for post-op radiation treatments to left hip to prevent postoperative heterotopic ossification. [facility] hospitalists were consulted to manage comorbid chronic medical conditions. Left hip osteoarthritis s/p Left hip arthroplasty - management per Dr. Lynch orthopedic surgeon - Dr. Lynch has consulted radiation oncology for post op radiation treatments to left hip to prevent heterotopic ossification Atrial fibrillation -Continue home metoprolol -Continuous cardiac telemetry to monitor for further arrhythmia COPD -Continue home albuterol inhaler as needed -Patient will have bring in name of preventive home inhaler that is not available on the medication reconciliation - will restart at that time -Add duo nebulizer every 2 hours for shortness of breath/wheezing not controlled by albuterol inhaler -Supplemental oxygen as needed to maintain oxygen saturation greater than 92% GERD -Protonix 20 mg p.o. daily -monitor for symptoms DVT prophylaxis -chemoprophylaxis per orthopedic surgeon -SCDs A.m. labs Discharge Planning Pending orthopedic clearance Problem Qualifiers (1) Osteoarthritis of left hip: Qualified Codes: M16.12 - Unilateral primary osteoarthritis, left hip Mir Perales DO Feb 18, 2018 11:12
[2018-02-18] MEDS ORDERED: MORPHINE SULFATE 4 MG/ML INJ IV PUSH ONE (15:00)
--- NOTE | 2018-02-18 16:48 | RADONCENDT ---
END OF TREATMENT SUMMARY Date: 02/18/2018 Patient Name: Kel Magaña Date of : 1965 Age: 52 Sex: Male END OF TREATMENT SUMMARY PRIMARY REFERRING PHYSICIAN: Bayron Lynch CC: Bayron Lynch DIAGNOSIS: Diagnosis Confirmed: Diagnosis Date: Diagnosis Laterality: Method of Diagnosis: Heterotropic bone formation PRESCRIPTION AND TREATMENT: Lt Hip (Plan ID - LT HIP c1) - Rx Dose 700cGy (Status - Treatment Approved) - He completed all treatments. PLAN FRACTIONS AND DATES: Course: Lt Hip Plan IDFractionsFirst TreatmentLast TreatmentExpected End of TreatmentLT HIP c11 / 1 TREATED PLANS: Course: Lt Hip Plan IDEnergyFractionsDose per Fraction (cGy)Dose Correction (cGy)Total Dose Delivered (cGy)Elapsed DaysLT HIP [id number] / [id number] TOLERANCE: He noted no known complications. FOLLOW UP PLAN: He will be followed by Dr Dunbar. Antonino Abreu MD 02/18/2018 4:48:17 PM This report was verified electronicallyThis report was verified electronically
[2018-02-18] MEDS: LACTULOSE SYRUP 20 GM/30 ML CUP PO PRN (20:42)
[2018-02-18] MEDS: TAMSULOSIN HCL 0.4 MG CAP PO SCH (20:42)
[2018-02-18] MEDS: DOCUSATE SODIUM 100 MG CAP PO SCH (20:42)
[2018-02-19] VITALS (11 sets, daily range): BP systolic 102–134; BP diastolic 60–76; PULSE 74–91; RESP 16–20; TEMP 97.2–98.4; O2SAT 84–97
[2018-02-19] MEDS: ZOLPIDEM TARTRATE 5 MG TAB PO PRN ×2 (01:16→20:40)
[2018-02-19] MEDS: oxyCODONE/ACETAMINOPHEN 10 MG/325 MG TAB PO PRN ×4 (01:16→20:37)
[2018-02-19] MEDS: LACTATED RINGER'S 1000 ML INJ 1,000 ML IV SCH ×2 (02:21→19:03)
--- NOTE | 2018-02-19 07:41 | PD.ORT.PN ---
Subjective Subjective Remarks pt complains of post op left hip pain no SOB, no chest pain Objective Vitals Vital Signs Date Time Temp Pulse Resp B/P (MAP) Pulse Ox O2 Delivery O2 Flow Rate FiO2 02/19/18 04:00 74 02/19/18 03:46 98.0 91 18 124/66 (85) 92 02/19/18 00:03 97.9 87 18 132/65 (87) 93 02/19/18 00:00 82 02/18/18 20:00 96 02/18/18 19:02 98.6 80 16 122/71 (88) 96 02/18/18 17:59 97 21 02/18/18 16:00 98.6 79 16 117/62 (80) 93 02/18/18 13:51 18 02/18/18 11:46 98.8 88 16 139/65 (89) 97 02/18/18 08:00 98.2 82 16 118/62 (80) 91 I/O 02/18/18 02/18/18 02/18/18 02/19/18 02/19/18 02/19/18 07:00 15:00 23:00 07:00 15:00 23:00 Intake Total 780 ml 600 ml 720 ml Output Total 2000 ml 1650 ml Balance -1220 ml 600 ml -930 ml Intake Oral 780 ml 600 ml 720 ml Output Urine Total 2000 ml 1650 ml # Voids 3 # Bowel Movements 0 0 Result Diagram: 02/18/18 0442 Objective Remarks left hip dressing dry and intact N/V intact No calf tenderness;negative louisa's sign Good correction of pre-op LLD Assessment & Plan Assessment and Plan POD #2 s/p L JULIO completed Low dose XRT yesterday to prevent post op HO Aspirin EC 81 mg BID x 4 weeks,TEDS for DVT/PE prophylaxsis anticipate discharge to SNF today, orthopedically stable 3008, percocet rx in chart Gardenia Miranda Feb 19, 2018 07:41
[2018-02-19] MEDS: PANTOPRAZOLE SOD 20 MG DELAYED RELEASE TAB PO SCH (08:38)
[2018-02-19] MEDS: METOPROLOL TARTRATE 25 MG TAB PO SCH (08:38)
[2018-02-19] MEDS: DOCUSATE SODIUM 100 MG CAP PO SCH ×2 (08:39→20:37)
[2018-02-19] MEDS: ASPIRIN EC 81 MG TABEC PO SCH ×2 (08:39→20:37)
[2018-02-19] MEDS: UMECLIDINIUM 62.5 MCG/VILANTEROL 25 MCG INHALER INH SCH (08:39)
[2018-02-19] MEDS: LACTULOSE SYRUP 20 GM/30 ML CUP PO PRN (08:42)
[2018-02-19 08:50] LABS: AUTOMATED NEUTROPHIL # 4.9 TH/MM3 (1.8-7.7); BASOPHIL % 0.4 % (0.0-2.0); EOSINOPHIL # 0.2 TH/MM3 (0-0.4); EOSINOPHIL % 1.7 % (0.0-4.0); HEMATOCRIT 30.1 % (39.0-51.0); HEMOGLOBIN 10.1 GM/DL (13.0-17.0); LYMPH % 30.5 % (9.0-44.0); LYMPHOCYTE # 2.7 TH/MM3 (1.0-4.8); MEAN CELL VOLUME 89.7 FL (80.0-100.0); MEAN CORPUSCULAR HEMOGLOBIN 30.2 PG (27.0-34.0); MEAN CORPUSCULAR HGB CONC 33.7 % (32.0-36.0); MEAN PLATELET VOLUME 8.2 FL (7.0-11.0); MONO % 11.4 % (0.0-8.0); PLATELET COUNT 176 TH/MM3 (150-450); RED BLOOD COUNT 3.35 MIL/MM3 (4.50-5.90); RED CELL DISTRIBUTION WIDTH 13.6 % (11.6-17.2); WHITE BLOOD COUNT 8.8 TH/MM3 (4.0-11.0)
[2018-02-19 09:02] LABS: ALBUMIN 3.3 GM/DL (3.4-5.0); AST (GOT) 28 U/L (15-37); BICARBONATE 26.1 MEQ/L (21.0-32.0); BLOOD UREA NITROGEN 17 MG/DL (7-18); CALCIUM 8.6 MG/DL (8.5-10.1); CHLORIDE 105 MEQ/L (98-107); GLOMERULAR FILTRATION RATE 101 ML/MIN (>89); GLUCOSE,RANDOM 98 MG/DL (74-106); MAGNESIUM 2.1 MG/DL (1.5-2.5); SODIUM (NA) 138 MEQ/L (136-145)
[2018-02-19 09:03] LABS: ALT (GPT) 41 U/L (12-78); PHOSPHORUS 2.7 MG/DL (2.5-4.9)
[2018-02-19 09:12] LABS: ALKALINE PHOSPHATASE 99 U/L (45-117); FREE T4 0.96 NG/DL (0.76-1.46); TOTAL BILIRUBIN ADULT 0.2 MG/DL (0.2-1.0); TOTAL PROTEIN 6.7 GM/DL (6.4-8.2)
--- NOTE | 2018-02-19 12:35 | HHI.PR ---
Subjective Remarks Mr. Magaña is a 52-year-old male with a history of atrial fibrillation on daily aspirin, COPD, bleeding peptic ulcer in 1998, and gastroesophageal reflux disease who presented to the hospital on 02/17/2018 for a left total hip arthroplasty. He is being admitted by Dr. Lynch with radiation oncology consultation for post-op radiation treatments to left hip to prevent postoperative heterotopic ossification. [facility] hospitalists were consulted to manage comorbid chronic medical conditions. The patient is seen in his hospital room. He is postoperative left total hip arthroplasty. Pain level has been as high as a 10/10. He reports adequate pain relief with current pain regimen. He has been in his usual state of health pre-operatively. He has chronic back pain and uses something similar to a TENS unit for this. 02-18 to go for radiation on his left hip today due to avascular necrosis Working with physical therapy Denies any nausea vomiting or diarrhea or constipation denies any shortness of breath or chest pain or palpitations Hopefully to go home tomorrow 02-19 NOW WANTS TO GO TO REHAB AWAIT SNF APPROVAL BY [facility] MEDICALLY CLEARED FOR SNF DW RN AND PT AND CM SEE ORDERS Objective Vitals Vital Signs Date Time Temp Pulse Resp B/P (MAP) Pulse Ox O2 Delivery O2 Flow Rate FiO2 02/19/18 08:00 98.4 81 16 102/63 (76) 95 02/19/18 04:00 74 02/19/18 03:46 98.0 91 18 124/66 (85) 92 02/19/18 00:03 97.9 87 18 132/65 (87) 93 02/19/18 00:00 82 02/18/18 20:00 96 02/18/18 19:02 98.6 80 16 122/71 (88) 96 02/18/18 17:59 97 21 02/18/18 16:00 98.6 79 16 117/62 (80) 93 02/18/18 13:51 18 I/O 02/18/18 02/18/18 02/18/18 02/19/18 02/19/18 02/19/18 07:00 15:00 23:00 07:00 15:00 23:00 Intake Total 780 ml 600 ml 720 ml Output Total 2000 ml 1650 ml Balance -1220 ml 600 ml -930 ml Intake Oral 780 ml 600 ml 720 ml Output Urine Total 2000 ml 1650 ml # Voids 3 # Bowel Movements 0 0 Result Diagram: 02/19/18 0717 02/19/18 0717 Other Results Laboratory Tests Test 02/18/18 04:42 02/19/18 07:17 Hemoglobin 11.8 GM/DL 10.1 GM/DL Hematocrit 34.5 % 30.1 % White Blood Count 8.8 TH/MM3 Red Blood Count 3.35 MIL/MM3 Mean Corpuscular Volume 89.7 FL Mean Corpuscular Hemoglobin 30.2 PG Mean Corpuscular Hemoglobin Concent 33.7 % Red Cell Distribution Width 13.6 % Platelet Count 176 TH/MM3 Mean Platelet Volume 8.2 FL Neutrophils (%) (Auto) 56.0 % Lymphocytes (%) (Auto) 30.5 % Monocytes (%) (Auto) 11.4 % Eosinophils (%) (Auto) 1.7 % Basophils (%) (Auto) 0.4 % Neutrophils # (Auto) 4.9 TH/MM3 Lymphocytes # (Auto) 2.7 TH/MM3 Monocytes # (Auto) 1.0 TH/MM3 Eosinophils # (Auto) 0.2 TH/MM3 Basophils # (Auto) 0.0 TH/MM3 CBC Comment DIFF FINAL Differential Comment Blood Urea Nitrogen 17 MG/DL Creatinine 0.80 MG/DL Random Glucose 98 MG/DL Total Protein 6.7 GM/DL Albumin 3.3 GM/DL Calcium Level 8.6 MG/DL Phosphorus Level 2.7 MG/DL Magnesium Level 2.1 MG/DL Alkaline Phosphatase 99 U/L Aspartate Amino Transf (AST/SGOT) 28 U/L Alanine Aminotransferase (ALT/SGPT) 41 U/L Total Bilirubin 0.2 MG/DL Sodium Level 138 MEQ/L Potassium Level 3.8 MEQ/L Chloride Level 105 MEQ/L Carbon Dioxide Level 26.1 MEQ/L Anion Gap 7 MEQ/L Estimat Glomerular Filtration Rate 101 ML/MIN Free Thyroxine 0.96 NG/DL Thyroid Stimulating Hormone 3rd Gen 1.280 uIU/ML Imaging Last Impressions Hip and Pelvis X-Ray 02/17/18 0000 Signed Impressions: Service Date/Time: Saturday, February 17, 2018 18:20 - CONCLUSION: 1. Left total hip arthroplasty is radiographically intact without fracture. 2. Degenerative osteoarthritic changes of the right hip Bharath Romano MD Objective Remarks GENERAL: Awake alert and oriented 3 talkative and cooperative SKIN: Warm and dry. HEAD: Atraumatic. Normocephalic. EYES: Pupils equal and round. No scleral icterus. No injection or drainage. Extraocular muscles intact ENT: No nasal bleeding or discharge. Mucous membranes pink and moist. Tongue is midline NECK: Trachea midline. No JVD. Supple CARDIOVASCULAR: IRRegular rate and rhythm. S1-S2 no S3 or S4 no heave or thrill or rub or gallop RESPIRATORY: No accessory muscle use. Clear to auscultation. Breath sounds equal bilaterally. GASTROINTESTINAL: Abdomen soft, non-tender, nondistended. Hepatic and splenic margins not palpable. MUSCULOSKELETAL: Extremities without clubbing, cyanosis, or edema. No obvious deformities. Tender left hip with decreased range of motion NEUROLOGICAL: Awake and alert. No obvious cranial nerve deficits. Motor grossly within normal limits. Five out of 5 muscle strength in the arms and legs. Normal speech. Tender left hip with decreased range of motion PSYCHIATRIC: Appropriate mood and affect; insight and judgment normal. Procedures DATE OF OPERATION: 02-17-18 PREOPERATIVE DIAGNOSIS: Left hip severe osteoarthritis. POSTOPERATIVE DIAGNOSIS: Left hip severe osteoarthritis. PROCEDURE PERFORMED: Left total hip arthroplasty. SURGEON: Bayron Lynch MD GEOPHYSICAL COMPUTER: Gardenia Miranda PA-C ANESTHESIA: General. COMPLICATIONS: None. ESTIMATED BLOOD LOSS: 350 mL DRAINS: None. SPECIMEN: None. DESCRIPTION OF PROCEDURE: My radiology physician assistant, Gardenia Miranda PA-C, was present for the entire surgical case. She was medically necessary for the entire case because of the complexity of the case and to facilitate the performance of the procedure. The SPORTS TRAINER was at the back table and was not of skill-set for this case to manipulate the instruments, e.g., the multiple different types of soft tissue retractors, trial implants and permanent implants. The patient was brought to the operating room and had satisfactory anesthesia by the Department of Anesthesia. The patient was placed in lateral decubitus position. All pressure points were well padded. The left upper and lower extremity were prepped and draped in the usual sterile manner. The left hip and lower extremity was prepped and draped in the usual sterile manner. The posterolateral exposure to the hip was made. The patient was found to have a significant limb length discrepancy with left leg shorter than the right leg with significant stiffness in hip preoperatively. A small posterolateral incision was made, dissecting through subcutaneous tissue. The fascia luz elena and gluteus etelvina were incised in line with the skin incision. Charnley retractor was placed in the wound in order to allow better exposure. Great care was made to protect the sciatic nerve throughout the entire operative procedure. The fascia luz elena and gluteus etelvina were incised in line with the skin incision. Short external rotators removed as a group. The hip abductors were preserved. Capsulotomy was performed and the hip was dislocated posteriorly. The patient was found to have significant deformity to the head with severe arthritis involving the hip joint itself. Osteotomy was made on the neck at the appropriate level. Exposure of the acetabulum made. The acetabular capsule and the acetabular labrum were surgically excised. Significant soft tissue releases were performed in order to improve the patient's range of motion. Hemispherical reamers were then used to prepare the acetabulum. The hip itself was initially medialized. It was sequentially reamed to 52 mm outer diameter. Using a bicentric cup, press-fit type manner, it was found to be stable and satisfactory. The preparation of the proximal femur was performed. Using the [employer] [place] system, sequentially broached to a #11 broach and standard offset. Reduction was made with multiple limb lengths with 28 mm ball. A +6 neck was assembled onto the trunnion. The hip was reduced. The patient was found to have satisfactory stability, satisfactory improvement of the limb length discrepancy and satisfactory range of motion. Hip was dislocated again posteriorly and all trial components were removed. A #11 stem, standard offset was then inserted into the proximal femur with an "excellent fit and fill." A +6 neck, 28 mm ball ceramic femoral head was assembled onto the trunnion. Hip was reduced. Again, patient was found to have satisfactory range of motion, satisfactory stability and satisfactory improvement of the limb length discrepancy. The wound was irrigated with copious amounts of sterile saline antibiotic solution, wound dry, wound closed in a routine manner. The short external rotators were repaired back to the greater trochanter drill holes using #2 Ti-Cron suture. The fascia luz elena and gluteus etelvina were repaired using #2 Ti-Cron suture, subcutaneous layers with 0 Vicryl and 2-0 Vicryl. Skin was approximated with running subcuticular 2-0 nylons. The patient tolerated the procedure well and went to the recovery room in stable and satisfactory condition. Bayron Lynch MD Medications and IVs Current Medications Gentamicin Sulfate (Gentamicin Inj) 240 mg STK-MED ONCE .ROUTE Last administered on 02/17/18at 15:44; Start 02/17/18 at 12:49; Stop 02/17/18 at 12:50 ; Status DC Lactated Ringer's 1,000 ml @ 30 mls/hr Q24H PRN IV SEE LABEL COMMENTS Last administered on 02/17/18at 13:48; Start 02/17/18 at 13:45; Stop 02/17/18 at 18:02 ; Status DC Sodium Chloride 500 ml @ 30 mls/hr [id number] PRN IV SEE LABEL COMMENTS; Start at 13:45; Stop 02/17/18 at 18:02; Status DC Metoprolol Tartrate (Lopressor) 25 mg HOT METAL MIXER OPERATOR PRN PO SEE LABEL COMMENTS; Start 02/17/18 at 13:45; Stop 02/17/18 at 18:02; Status DC Povidone Iodine (Betadine 5% Antisepsis Kit) 1 applic HOT METAL MIXER OPERATOR PRN EACH NARE SEE LABEL COMMENTS Last administered on 02/17/18 13:48; Start 02/17/18 at 13:45 ; Stop 02/17/18 at 18:02; Status DC Chlorhexidine Gluconate (Chlorhexidine 2% Cloth) 3 pack HOT METAL MIXER OPERATOR PRN TOPICAL SEE LABEL COMMENTS Last administered on 02/17/18at 13:48; Start 02/17/18 at 13:45 ; Stop 02/20/18 at 13:44 Chlorhexidine Gluconate (Hibiclens 4% Top Soln) 1 applic ONCE TOPICAL Last administered on 02/17/18 13:48; Start 02/17/18 at 13:45; Stop 02/17/18 at 18:02 ; Status DC Cefazolin Sodium/ Dextrose 50 ml @ 100 mls/hr HOT METAL MIXER OPERATOR IV Last administered on 02/17/18at 15:05; Start 02/17/18 at 13:45; Stop 02/17/18 at 18:02; Status DC Vancomycin HCl 1000 mg/Sodium Chloride 250 ml @ 250 mls/hr HOT METAL MIXER OPERATOR IV ; Start 02/17/18 at 13:45; Stop 02/20/18 at 13:44; Status Cancel Vancomycin/Sodium Chloride 200 ml @ 200 mls/hr HOT METAL MIXER OPERATOR IV Last administered on 02/17/18at 14:47; Start 02/17/18 at 13:45; Stop 02/20/18 at 13:44 Acetaminophen 100 ml @ As Directed STK-MED ONCE IV ; Start 02/17/18 at 13:57; Stop 02/17/18 at 13:58; Status DC Ketamine HCl (Ketalar Inj) 500 mg STK-MED ONCE .ROUTE ; Start 02/17/18 at 15:33 ; Stop 02/17/18 at 15:34; Status DC Albuterol Sulfate (Proair Hfa Inh) 1 puff Q4H PRN INH SHORTNESS OF BREATH; Start 02/17/18 at 17:15 Lactulose (Lactulose Liq) 30 ml Q6H PRN PO CONSTIPATION Last administered on at 08:42; Start 02/17/18 at 17:15 Metoprolol Tartrate (Lopressor) 25 mg DAILY PO Last administered on 02/19/18at 08:38; Start 02/18/18 at 09:00 Tamsulosin HCl (Flomax) 0.8 mg HS PO Last administered on 02/18/18at 20:42; Start 02/17/18 at 21:00 Pantoprazole Sodium (Protonix) 20 mg DAILY PO Last administered on 02/19/18at 08 :38; Start 02/18/18 at 09:00 Lactated Ringer's 1,000 ml @ 80 mls/hr [id number] IV Last administered on at 18:15; Start 02/17/18 at 17:03 Cefazolin Sodium 1000 mg/Sodium Chloride 100 ml @ 200 mls/hr Q6H IV Last administered on 02/18/18at 08:56; Start 02/17/18 at 21:00; Stop 02/18/18 at 09:29 ; Status DC Miscellaneous Information (Post-op Orders (for Pharmacy)) STAT ONCE XX ; Start 02/17/18 at 17:15; Stop 02/17/18 at 18:05; Status DC Morphine Sulfate (Morphine Inj) 5 mg Q3H PRN IV PUSH BREAKTHROUGH PAIN Last administered on 02/18/18at 01:49; Start 02/17/18 at 17:15; Stop 02/18/18 at 08:00 ; Status DC Ondansetron HCl (Zofran Inj) 4 mg Q6H PRN IVP NAUSEA OR VOMITING; Start at 17:15 Docusate Sodium (Colace) 100 mg BID PO Last administered on 02/19/18at 08:39; Start 02/18/18 at 21:00 Al Hydrox/Mg Hydrox/Simethicone (Mag-Al Plus Susp Liq) 30 ml Q6H PRN PO INDIGESTION; Start 02/17/18 at 17:15 Zolpidem Tartrate (Ambien) 5 mg HS PRN PO SLEEP Last administered on 02/19/18 01:16; Start 02/17/18 at 17:15 Aspirin (Ecotrin Ec) 81 mg BID PO Last administered on 02/19/18at 08:39; Start 02/17/18 at 21:00 Oxycodone/ Acetaminophen (Percocet 10-325 Mg) 1 tab Q6H PRN PO PAIN 1-5; Start 02/17/18 at 17:15 Oxycodone/ Acetaminophen (Percocet 10-325 Mg) 2 tab Q6H PRN PO PAIN 6-10 Last administered on 02/19/18at 08:38; Start 02/17/18 at 17:15 Fentanyl Citrate (fentaNYL INJ) 100 mcg STK-MED ONCE .ROUTE ; Start 02/17/18 at 17:15; Stop 02/17/18 at 17:16; Status DC Midazolam HCl (Versed Inj) 2 mg STK-MED ONCE .ROUTE ; Start 02/17/18 at 17:15; Stop 02/17/18 at 17:16; Status DC Morphine Sulfate (Morphine Inj) 8 mg STK-MED ONCE .ROUTE ; Start 02/17/18 at 17: 15; Stop 02/17/18 at 17:16; Status DC Meperidine HCl (*DEMEROL INJ PERIprocedural ONLY) 25 mg STK-MED ONCE .ROUTE Last administered on 02/17/18at 17:17; Start 02/17/18 at 17:17; Stop 02/17/18 at 17:18; Status DC Morphine Sulfate (*morphine INJ PERIprocedure ONLY) 4 mg STK-MED ONCE .ROUTE Last administered on 02/17/18at 17:30; Start 02/17/18 at 17:30; Stop 02/17/18 at 17:31; Status DC Ondansetron HCl (*ZOFRAN INJ PERIprocedural ONLY) 4 mg STK-MED ONCE .ROUTE Last administered on 02/17/18at 17:30; Start 02/17/18 at 17:30; Stop 02/17/18 at 17:31; Status DC Morphine Sulfate (*morphine INJ PERIprocedure ONLY) 4 mg STK-MED ONCE .ROUTE Last administered on 02/17/18at 17:40; Start 02/17/18 at 17:40; Stop 02/17/18 at 17:41; Status DC Hydromorphone HCl (Dilaudid Pf Inj) 0.5 mg STK-MED ONCE .ROUTE Last administered on 02/17/18at 17:48; Start 02/17/18 at 17:48; Stop 02/17/18 at 17:49 ; Status DC Morphine Sulfate (*morphine INJ PERIprocedure ONLY) 4 mg STK-MED ONCE .ROUTE Last administered on 02/17/18at 18:26; Start 02/17/18 at 18:26; Stop 02/17/18 at 18:27; Status DC Miscellaneous Information ALL NURSING DEPARTME... UNSCH PRN .XX SEE LABEL COMMENTS; Start 02/17/18 at 19:45; Stop 02/18/18 at 19:44; Status DC Albuterol/ Ipratropium (Duoneb Neb) 1 ampule Q2HR NEB PRN NEB sob/wheezing ; Start 02/17/18 at 21:00 Morphine Sulfate (Morphine Inj) 4 mg ONCE ONCE IV PUSH Last administered on at 15:30; Start 02/18/18 at 15:00; Stop 02/18/18 at 15:08; Status DC Lactated Ringer's 1,000 ml @ As Directed STK-MED ONCE IV ; Start 02/17/18 at 12 :00; Stop 02/19/18 at 09:26; Status DC Sodium Chloride (NS Inj) 20 ml STK-MED ONCE IV ; Start 02/17/18 at 12:00; Stop 02/19/18 at 09:26; Status DC Sterile Water (Sterile Water For Injection) 20 ml STK-MED ONCE IV ; Start at 12:00; Stop 02/19/18 at 09:26; Status DC Lidocaine HCl (Xylocaine-Mpf 1% Inj) 5 ml STK-MED ONCE OTHER ; Start 02/17/18 at 12:00; Stop 02/19/18 at 09:26; Status DC Rocuronium [place] (Zemuron Inj) 50 mg STK-MED ONCE IV PUSH ; Start 02/17/18 at 12:00; Stop 02/19/18 at 09:26; Status DC Neostigmine Methylsulfate (Prostigmine Inj) 5 mg STK-MED ONCE IV PUSH ; Start at 12:00; Stop 02/19/18 at 09:26; Status DC Glycopyrrolate (Robinul Inj) 1 mg STK-MED ONCE IV PUSH ; Start 02/17/18 at 12:00 ; Stop 02/19/18 at 09:26; Status DC Phenylephrine HCl (Neosynephrine/ NS 1000 Mcg/10ml Syr) 2,000 mcg STK-MED ONCE IV ; Start 02/17/18 at 12:00; Stop 02/19/18 at 09:26; Status DC Vecuronium [place] (Norcuron 20 Mg Inj) 20 mg STK-MED ONCE IV ; Start 02/17/18 at 12:00; Stop 02/19/18 at 09:26; Status DC Dexamethasone Sodium Phosphate (Decadron Inj) 8 mg STK-MED ONCE IV ; Start 02/17 at 12:00; Stop 02/19/18 at 09:26; Status DC Ondansetron HCl (Zofran Inj) 4 mg STK-MED ONCE IV ; Start 02/17/18 at 12:00; Stop 02/19/18 at 09:26; Status DC Cefazolin Sodium (Ancef Inj) 2,000 mg STK-MED ONCE IV ; Start 02/17/18 at 12:00 ; Stop 02/19/18 at 09:26; Status DC Propofol (Diprivan 200 Mg/20 ml Inj) 200 mg STK-MED ONCE IV ; Start 02/17/18 at 12:00; Stop 02/19/18 at 09:26; Status DC A/P Problem List: (1) Osteoarthritis of left hip ICD Code: M16.12 - Unilateral primary osteoarthritis, left hip Assessment and Plan Mr. Magaña is a 52-year-old male with a history of atrial fibrillation on daily aspirin, COPD, bleeding peptic ulcer in 1998, and gastroesophageal reflux disease who presented to the hospital on 02/17/2018 for a left total hip arthroplasty. He is being admitted by Dr. Lynch with radiation oncology consultation for post-op radiation treatments to left hip to prevent postoperative heterotopic ossification. [facility] hospitalists were consulted to manage comorbid chronic medical conditions. Left hip osteoarthritis s/p Left hip arthroplasty - management per Dr. Lynch orthopedic surgeon - Dr. Lynch has consulted radiation oncology for post op radiation treatments to left hip to prevent heterotopic ossification SP RADIATION TO LEFT HIP Atrial fibrillation -Continue home metoprolol -Continuous cardiac telemetry to monitor for further arrhythmia COPD -Continue home albuterol inhaler as needed -Patient will have bring in name of preventive home inhaler that is not available on the medication reconciliation - will restart at that time -Add duo nebulizer every 2 hours for shortness of breath/wheezing not controlled by albuterol inhaler -Supplemental oxygen as needed to maintain oxygen saturation greater than 92% GERD -Protonix 20 mg p.o. daily -monitor for symptoms DVT prophylaxis -chemoprophylaxis per orthopedic surgeon -SCDs Discharge Planning Pending orthopedic clearance Problem Qualifiers (1) Osteoarthritis of left hip: Qualified Codes: M16.12 - Unilateral primary osteoarthritis, left hip Mir Perales DO Feb 19, 2018 12:35
[2018-02-19] MEDS ORDERED: ECASA81 PO (12:37)
[2018-02-19] MEDS ORDERED: SENN187 PO (12:37)
[2018-02-19] MEDS ORDERED: Albuterol-Ipratropium Neb NEB (12:37)
[2018-02-19 16:42] LABS: HEMOGLOBIN A1C 5.3 % (4.3-6.0)
[2018-02-19] MEDS: TAMSULOSIN HCL 0.4 MG CAP PO SCH (20:37)
[2018-02-20] VITALS: BP 126/70; PULSE 98; RESP 18; TEMP 98.2; O2SAT 97
[2018-02-20] MEDS: oxyCODONE/ACETAMINOPHEN 10 MG/325 MG TAB PO PRN ×3 (02:53→14:50)
[2018-02-20] MEDS: LACTATED RINGER'S 1000 ML INJ 1,000 ML IV SCH (03:49)
[2018-02-20 05:12] VITALS: BP 124/60; PULSE 84; RESP 16; TEMP 98.2; O2SAT 95
[2018-02-20 08:00] VITALS: BP 136/65; PULSE 4; PULSE 81; RESP 19; TEMP 98.3; O2SAT 96
[2018-02-20] MEDS: UMECLIDINIUM 62.5 MCG/VILANTEROL 25 MCG INHALER INH SCH (08:42)
[2018-02-20] MEDS: METOPROLOL TARTRATE 25 MG TAB PO SCH (08:42)
[2018-02-20] MEDS: PANTOPRAZOLE SOD 20 MG DELAYED RELEASE TAB PO SCH (08:42)
[2018-02-20] MEDS: DOCUSATE SODIUM 100 MG CAP PO SCH (08:42)
[2018-02-20] MEDS: ASPIRIN EC 81 MG TABEC PO SCH (08:42)
--- NOTE | 2018-02-20 09:52 | HHI.PR ---
Subjective Remarks Follow up left hip fracture. POD #2. Patient laying in bed, denies pain, controlled with current pain medication. States he is ready to go to rehab. Denies any chest pain, or sob. Working with PT well. Objective Vitals Vital Signs Date Time Temp Pulse Resp B/P (MAP) Pulse Ox O2 Delivery O2 Flow Rate FiO2 02/20/18 08:00 98.3 81 19 136/65 (88) 96 02/20/18 05:12 98.2 84 16 124/60 (81) 95 02/20/18 00:00 98.2 98 18 126/70 (88) 97 02/19/18 22:05 93 02/19/18 22:00 97.2 86 20 119/70 (86) 84 02/19/18 17:57 96 21 02/19/18 16:00 98.1 81 16 134/60 (84) 92 02/19/18 12:00 97.2 82 16 123/76 (92) 96 02/19/18 10:00 97 I/O 02/19/18 02/19/18 02/19/18 02/20/18 02/20/18 02/20/18 07:00 15:00 23:00 07:00 15:00 23:00 Intake Total 720 ml 950 ml 120 ml Output Total 1650 ml 400 ml Balance -930 ml 950 ml -280 ml Intake Oral 720 ml 950 ml 120 ml Output Urine Total 1650 ml 400 ml # Voids 4 # Bowel Movements 0 1 1 Result Diagram: 02/19/1871602/19/18 0717 Objective Remarks GENERAL: SKIN: Warm and dry. HEAD: Atraumatic. Normocephalic. EYES: Pupils equal and round. No scleral icterus. No injection or drainage. ENT: No nasal bleeding or discharge. Mucous membranes pink and moist. NECK: Trachea midline. No JVD. CARDIOVASCULAR: Regular rate and rhythm. RESPIRATORY: No accessory muscle use. Clear to auscultation. Breath sounds equal bilaterally. GASTROINTESTINAL: Abdomen soft, non-tender, nondistended. Hepatic and splenic margins not palpable. MUSCULOSKELETAL: Extremities without clubbing, cyanosis, or edema. No obvious deformities. NEUROLOGICAL: Awake and alert. No obvious cranial nerve deficits. Motor grossly within normal limits. Limited range of motion with left hip. Normal speech. PSYCHIATRIC: Appropriate mood and affect; insight and judgment normal. Procedures DATE OF OPERATION: 02-17-18 PREOPERATIVE DIAGNOSIS: Left hip severe osteoarthritis. POSTOPERATIVE DIAGNOSIS: Left hip severe osteoarthritis. PROCEDURE PERFORMED: Left total hip arthroplasty. SURGEON: Bayron Lynch MD MEN'S BASKETBALL COACH: Gardenia Miranda PA-C ANESTHESIA: General. COMPLICATIONS: None. ESTIMATED BLOOD LOSS: 350 mL DRAINS: None. SPECIMEN: None. DESCRIPTION OF PROCEDURE: My intellectual property legal assistant, Gardenia Miranda PA-C, was present for the entire surgical case. She was medically necessary for the entire case because of the complexity of the case and to facilitate the performance of the procedure. The MANUFACTURED BUILDINGS REPAIRER was at the back table and was not of skill-set for this case to manipulate the instruments, e.g., the multiple different types of soft tissue retractors, trial implants and permanent implants. The patient was brought to the operating room and had satisfactory anesthesia by the Department of Anesthesia. The patient was placed in lateral decubitus position. All pressure points were well padded. The left upper and lower extremity were prepped and draped in the usual sterile manner. The left hip and lower extremity was prepped and draped in the usual sterile manner. The posterolateral exposure to the hip was made. The patient was found to have a significant limb length discrepancy with left leg shorter than the right leg with significant stiffness in hip preoperatively. A small posterolateral incision was made, dissecting through subcutaneous tissue. The fascia luz elena and gluteus etelvina were incised in line with the skin incision. Charnley retractor was placed in the wound in order to allow better exposure. Great care was made to protect the sciatic nerve throughout the entire operative procedure. The fascia luz elena and gluteus etelvina were incised in line with the skin incision. Short external rotators removed as a group. The hip abductors were preserved. Capsulotomy was performed and the hip was dislocated posteriorly. The patient was found to have significant deformity to the head with severe arthritis involving the hip joint itself. Osteotomy was made on the neck at the appropriate level. Exposure of the acetabulum made. The acetabular capsule and the acetabular labrum were surgically excised. Significant soft tissue releases were performed in order to improve the patient's range of motion. Hemispherical reamers were then used to prepare the acetabulum. The hip itself was initially medialized. It was sequentially reamed to 52 mm outer diameter. Using a bicentric cup, press-fit type manner, it was found to be stable and satisfactory. The preparation of the proximal femur was performed. Using the Biomet Taperloc system, sequentially broached to a #11 broach and standard offset. Reduction was made with multiple limb lengths with 28 mm ball. A +6 neck was assembled onto the trunnion. The hip was reduced. The patient was found to have satisfactory stability, satisfactory improvement of the limb length discrepancy and satisfactory range of motion. Hip was dislocated again posteriorly and all trial components were removed. A #11 stem, standard offset was then inserted into the proximal femur with an "excellent fit and fill." A +6 neck, 28 mm ball ceramic femoral head was assembled onto the trunnion. Hip was reduced. Again, patient was found to have satisfactory range of motion, satisfactory stability and satisfactory improvement of the limb length discrepancy. The wound was irrigated with copious amounts of sterile saline antibiotic solution, wound dry, wound closed in a routine manner. The short external rotators were repaired back to the greater trochanter drill holes using #2 Ti-Cron suture. The fascia luz elena and gluteus etelvina were repaired using #2 Ti-Cron suture, subcutaneous layers with 0 Vicryl and 2-0 Vicryl. Skin was approximated with running subcuticular 2-0 nylons. The patient tolerated the procedure well and went to the recovery room in stable and satisfactory condition. Bayron Lynch MD Medications and IVs Current Medications Medications (Trade) Dose Ordered Sig/Kings Route Start Time Stop Time Status Last Admin (Chlorhexidine 2% Cloth) 3 pack PROFESSOR OF ARCHAEOLOGY PRN TOPICAL 02/17/18 13:45 02/20/18 13:44 02/17/18 13:48 Vancomycin/Sodium Chloride 200 ml @ 200 mls/hr PROFESSOR OF ARCHAEOLOGY IV 02/17/18 13:45 02/20/18 13:44 02/17/18 14:47 (Proair Hfa Inh) 1 puff Q4H PRN INH 02/17/18 17:15 (Lactulose Liq) 30 ml Q6H PRN PO 02/17/18 17:15 02/19/18 08:42 (Lopressor) 25 mg DAILY PO 02/18/18 09:00 02/20/18 08:42 (Flomax) 0.8 mg HS PO 02/17/18 21:00 02/19/18 20:37 (Protonix) 20 mg DAILY PO 02/18/18 09:00 02/20/18 08:42 Lactated Ringer's 1,000 ml @ 80 mls/hr [id number] IV 02/17/18 17:03 02/17/18 18:15 (Zofran Inj) 4 mg Q6H PRN IVP 02/17/18 17:15 (Colace) 100 mg BID PO 02/18/18 21:00 02/20/18 08:42 (Mag-Al Plus Susp Liq) 30 ml Q6H PRN PO 02/17/18 17:15 (Ambien) 5 mg HS PRN PO 02/17/18 17:15 02/19/18 20:40 (Ecotrin Ec) 81 mg BID PO 02/17/18 21:00 02/20/18 08:42 (Percocet 10-325 Mg) 1 tab Q6H PRN PO 02/17/18 17:15 (Percocet 10-325 Mg) 2 tab Q6H PRN PO 02/17/18 17:15 02/20/18 08:42 (Duoneb Neb) 1 ampule Q2HR NEB PRN NEB 02/17/18 21:00 Urinary Catheter: No Vascular Central Line Catheter: No A/P Problem List: (1) Osteoarthritis of left hip ICD Code: M16.12 - Unilateral primary osteoarthritis, left hip Assessment and Plan Mr. Magaña is a 52-year-old male with a history of atrial fibrillation on daily aspirin, COPD, bleeding peptic ulcer in 1998, and gastroesophageal reflux disease who presented to the hospital on 02/17/2018 for a left total hip arthroplasty. He is being admitted by Dr. Lynch with radiation oncology consultation for post-op radiation treatments to left hip to prevent postoperative heterotopic ossification. [facility] hospitalists were consulted to manage comorbid chronic medical conditions. Left hip osteoarthritis s/p Left hip arthroplasty - management per Dr. Lynch orthopedic surgeon - Dr. Lynch has consulted radiation oncology for post op radiation treatments to left hip to prevent heterotopic ossification SP RADIATION TO LEFT HIP Atrial fibrillation -Continue home metoprolol -Continuous cardiac telemetry to monitor for further arrhythmia COPD -Continue home albuterol inhaler as needed -Continue duo nebs -O2 as needed GERD, chronic -Protonix 20 mg p.o. daily -monitor for symptoms DVT prophylaxis: -chemoprophylaxis per orthopedic surgeon -SCDs Discharge Planning [employer] has denied patient to SNF, possible DC home with [facility], ortho to discharge , clear by hospitalist. Problem Qualifiers (1) Osteoarthritis of left hip: Qualified Codes: M16.12 - Unilateral primary osteoarthritis, left hip Maida Byrd Feb 20, 2018 09:52
--- NOTE | 2018-02-20 11:13 | PD.ORT.PN ---
Subjective Subjective Remarks pt complains of post op left hip pain no SOB, no chest pain Objective Vitals Vital Signs Date Time Temp Pulse Resp B/P (MAP) Pulse Ox O2 Delivery O2 Flow Rate FiO2 02/20/18 08:00 98.3 81 19 136/65 (88) 96 02/20/18 05:12 98.2 84 16 124/60 (81) 95 02/20/18 00:00 98.2 98 18 126/70 (88) 97 02/19/18 22:05 93 02/19/18 22:00 97.2 86 20 119/70 (86) 84 02/19/18 17:57 96 21 02/19/18 16:00 98.1 81 16 134/60 (84) 92 02/19/18 12:00 97.2 82 16 123/76 (92) 96 I/O 02/19/18 02/19/18 02/19/18 02/20/18 02/20/18 02/20/18 07:00 15:00 23:00 07:00 15:00 23:00 Intake Total 720 ml 950 ml 120 ml Output Total 1650 ml 400 ml Balance -930 ml 950 ml -280 ml Intake Oral 720 ml 950 ml 120 ml Output Urine Total 1650 ml 400 ml # Voids 4 # Bowel Movements 0 1 1 Result Diagram: 02/19/1871602/19/18716 Objective Remarks also seen and examined by Dr. Bayron Lynch left hip dressing dry and intact N/V intact No calf tenderness;negative louisa's sign Good correction of pre-op LLD Assessment & Plan Assessment and Plan POD #3 s/p L JULIO completed Low dose XRT Saturday to prevent post op HO Aspirin EC 81 mg BID x 4 weeks,TEDS for DVT/PE prophylaxsis patient was supposed to be discharged to [facility] yesterday but it was decided by his insurance carrier that he was progressing well enough to be discharged home with [facility] orthopedically stable Gardenia Miranda Feb 20, 2018 11:13
[2018-02-20 12:00] VITALS: BP 106/64; PULSE 84; PULSE 88; RESP 19; TEMP 99.5; O2SAT 95
== END 2018-02-20 16:29 | disposition home health service (06) | DRG 470 ==
LOC: HSDI 12:21 → N06A 20:05
PROVIDERS: ADMIT Orthopaedic Surgery Orthopaedic Surgery of the Spine; ATTEND Orthopaedic Surgery Orthopaedic Surgery of the Spine
PROC: 0SRB03A Replacement of Left Hip Joint with Ceramic Synthetic Substitute, Uncemented, Open Approach (ICD-10-PCS; principal; 2018-02-17 14:52)
DX: M16.12 Unilateral primary osteoarthritis, left hip (principal); M87.9 Osteonecrosis, unspecified; I10 Essential (primary) hypertension; M89.8X8 Other specified disorders of bone, other site; J44.9 Chronic obstructive pulmonary disease, unspecified; I48.91 Unspecified atrial fibrillation; Z79.82 Long term (current) use of aspirin; Z87.11 Personal history of peptic ulcer disease; G89.29 Other chronic pain; M54.9 Dorsalgia, unspecified; K21.9 Gastro-esophageal reflux disease without esophagitis; Z87.891 Personal history of nicotine dependence; Z96.651 Presence of right artificial knee joint
CPT/HCPCS: 73501; 80053; 83036; 83735; 84100; 84439; 84443; 85014; 85018; 85025; 86850; 86900; 86901; 86920; 94150; C1776; J0131; J0690; J1100; J1170; J1580; J2175; J2250; J2270; J2370; J2405; J2710; J3010; J3370; J7120; L1830